=== PATIENT | male | born 1985 | race Caucasian/White ===

== ENCOUNTER 2019-07-31 20:48 | Emergency (ER) | payer SELFPAY ==
[~2019-07-31] VITALS: Ht 180.3 cm; Wt 102.1 kg
[~2019-07-31 20:48] MED LIST: ALPR1 PO; METPHE5 PO
[2019-07-31 21:03] LABS: BASOPHILS ABSOLUTE AUTO 0.06 K/mm3 (0.00-0.23); BASOPHILS PERCENT AUTO 0 % (0-2); EOSINOPHILS ABSOLUTE AUTO 1.25 K/mm3 (0.00-0.68); EOSINOPHILS PERCENT AUTO 8 % (0-6); Hematocrit 52.7 % (37.0-53.0); Hemoglobin 17.3 g/dL (13.5-17.5); IMMATURE GRAN ABSOLUTE AUTO 0.04 K/mm3 (0.00-0.10); IMMATURE GRAN PERCENT AUTO 0 % (0-1); LYMPHOCYTES ABSOLUTE AUTO 4.42 K/mm3 (0.84-5.20); LYMPHOCYTES PERCENT AUTO 29 % (21-46); MONOCYTES ABSOLUTE AUTO 1.02 K/mm3 (0.16-1.47); MONOCYTES PERCENT AUTO 7 % (4-13); Mean Corpuscular HGB 29.3 pg (26.0-34.0); Mean Corpuscular HGB Conc 32.8 g/dL (31.5-36.5); Mean Corpuscular Volume 89 fL (80-100); Mean Platelet Volume 10.3 fL (9.1-12.4); NEUTROPHILS ABSOLUTE AUTO 8.54 K/mm3 (1.96-9.15); NEUTROPHILS PERCENT AUTO 56 % (41-73); Platelet Count 270 K/mm3 (150-400); RDW Coefficient Variation 12.3 % (11.7-14.2); RDW Standard Deviation 40.9 fL (35.1-46.3); White Blood Cell Count 15.33 K/mm3 (4.00-11.30)
[2019-07-31 21:31] LABS: Alanine Aminotransfer (ALT/SGP 34 U/L (12-78); Albumin, Blood 4.5 g/dL (3.4-5.0); Albumin/Globulin Ratio 0.9 (0.8-1.8); Alk Phos 142 U/L (50-136); Anion Gap 6 mmol/L (6-16); Aspartate Aminotrans (AST/SGOT 21 U/L (12-37); Bilirubin, Total 0.9 mg/dL (0.1-1.0); Blood Urea Nitrogen 10 mg/dL (8-24); Bun/Creatinine Ratio 10.5 (12.0-20.0); CO2, Blood 29 mmol/L (21-32); Calcium, Blood 9.6 mg/dL (8.5-10.1); Chloride, Blood 104 mmol/L (98-108); Creatinine, Blood 0.95 mg/dL (0.60-1.20); Glomerular Filtration Rate >60 (60-); Glucose, Blood 195 mg/dL (70-99); Potassium, Blood 3.8 mmol/L (3.5-5.5); Sodium, Blood 139 mmol/L (136-145); Total Protein, Blood 9.5 g/dL (6.4-8.2)
[2019-07-31] MEDS ORDERED: Prednisone20 MG PO (22:04)
[2019-07-31] MEDS ORDERED: IPRAT-ALBUT 0.5-3 ML INH (22:04)
[2019-07-31] MEDS ORDERED: ALBU90OI INH (22:04)
[2019-07-31] MEDS ORDERED: ALBU2.5V5 NEB (22:04)
== END 2019-07-31 22:12 | disposition home or self-care (01) ==
LOC: ER 20:48
PROVIDERS: Physician Assistant
DX: J45.901 Unspecified asthma with (acute) exacerbation (principal); Z79.899 Other long term (current) drug therapy; F17.210 Nicotine dependence, cigarettes, uncomplicated
CPT/HCPCS: 36415; 71045; 80053; 85025; 94644; 96365; 96375; 99285-25; J2930; J3475

== ENCOUNTER 2019-12-23 15:55 | Observation (INO) | payer OTHER ==
[~2019-12-23] VITALS: Ht 177.8 cm; Wt 92.8 kg
[~2019-12-23 15:55] MED LIST changes: +ALBU2.5V5 NEB; +ALBU90OI INH; +IPRAT-ALBUT 0.5-3 ML INH; +Prednisone20 MG PO
[2019-12-23 18:36] LABS: PCO2 Arterial 49.2 mmHg (35-45); PO2 Arterial 62.6 mmHg (80-100); pH Blood Arterial 7.37 (7.35-7.45)
[2019-12-23 18:37] LABS: BASOPHILS ABSOLUTE AUTO 0.04 K/mm3 (0.00-0.23); BASOPHILS PERCENT AUTO 0 % (0-2); EOSINOPHILS ABSOLUTE AUTO 0.42 K/mm3 (0.00-0.68); EOSINOPHILS PERCENT AUTO 3 % (0-6); Hematocrit 48.1 % (37.0-53.0); Hemoglobin 15.7 g/dL (13.5-17.5); IMMATURE GRAN ABSOLUTE AUTO 0.04 K/mm3 (0.00-0.10); IMMATURE GRAN PERCENT AUTO 0 % (0-1); LYMPHOCYTES PERCENT AUTO 9 % (21-46); MONOCYTES ABSOLUTE AUTO 0.26 K/mm3 (0.16-1.47); MONOCYTES PERCENT AUTO 2 % (4-13); Mean Corpuscular HGB 29.4 pg (26.0-34.0); Mean Corpuscular HGB Conc 32.6 g/dL (31.5-36.5); Mean Corpuscular Volume 90 fL (80-100); Mean Platelet Volume 10.5 fL (9.1-12.4); NEUTROPHILS ABSOLUTE AUTO 11.07 K/mm3 (1.96-9.15); NEUTROPHILS PERCENT AUTO 85 % (41-73); Platelet Count 244 K/mm3 (150-400); RDW Coefficient Variation 12.5 % (11.7-14.2); RDW Standard Deviation 41.5 fL (35.1-46.3); Red Blood Cell Count 5.34 M/mm3 (4.30-5.90); White Blood Cell Count 13.03 K/mm3 (4.00-11.30)
[2019-12-23 19:00] LABS: Alanine Aminotransfer (ALT/SGP 52 U/L (12-78); Albumin, Blood 4.1 g/dL (3.4-5.0); Albumin/Globulin Ratio 0.9 (0.8-1.8); Alk Phos 129 U/L (50-136); Anion Gap 5 mmol/L (6-16); Aspartate Aminotrans (AST/SGOT 40 U/L (12-37); Bilirubin, Total 1.1 mg/dL (0.1-1.0); Blood Urea Nitrogen 11 mg/dL (8-24); Bun/Creatinine Ratio 15.8 (12.0-20.0); CO2, Blood 31 mmol/L (21-32); Calcium, Blood 9.5 mg/dL (8.5-10.1); Chloride, Blood 103 mmol/L (98-108); Globulin, Blood 4.6 g/dL (2.2-4.0); Glomerular Filtration Rate >60 (60-); Glucose, Blood 205 mg/dL (70-99); Potassium, Blood 4.2 mmol/L (3.5-5.5); Sodium, Blood 139 mmol/L (136-145); Total Protein, Blood 8.7 g/dL (6.4-8.2)
--- NOTE | 2019-12-24 08:09 | NUR ---
SHIFT SUMMARY PT ARRIVED TO THE UNIT AROUND 2100 IN STABLE CONDTION WITH NO COMPLAINTS OF SOB OR COUGH. PT STATED MILD DISCOMFORT IN CHEST WITH DEEP BREATHS. PT DID HAVE OCCASIONAL COUGH THAT WAS UNPRODUCTIVE. PT STATED USING ALBUTEROL INHALER AN EXCESSIVE AMOUNT PER DAY, MORE THAN 10 TIME/DAY. PB WAS HYPERTENSIVE UPON ADMISSION WITH SYSTOLIC AROUND 170 FALLING TO 155 BY MORNING. HR IN THE 60-70'S. PT STATED USING O2 AT HOME BUT IT WAS VERY UNCLEAR WHAT TYPE AND WHEN HE USED IT, HE STATED HE WAS ON 3LPM. PT HAD VERY UNEVENTFUL EVENING. PT AWAKE AND TALKING ON PHONE, WILL CONTINUE TO MONITOR UNTIL SHIFT CHANGE.
[2019-12-24] MEDS ORDERED: FLUTICASONE-SA1 EAC1 INH (14:11)
[2019-12-24] MEDS ORDERED: PRED20 PO (14:12)
--- NOTE | 2019-12-24 14:33 | NUR ---
SHIFT SUMMARY PT A&Ox4; ANXIOUS BUT COOPERATIVE WITH CARE. SOB WITH ACTIVITY OR WITH COUGH, SPO2 >90% ON RA AT REST. DIPS TO 895 AT TIMES WITH AMBULATION. HOME O2 EVAL COMPLETED. PT DENIES PAIN, NAUSEA AND DIZIZINESS. PT RECEIIVNG IV STEROIDS. VSS. NO OTHER ACUTE CHANGES NOTED DURING SHIFT. PT INSISTANT ON LEAVING HOME TODAY; NOTIIFED DR CROWLEY; NEW DISCHARGE ORDERS FOR DISCHARGE. MEDS CALLED INTO [facility], EDUCATED ON [employer] PT DOES NOT HAVE INSURANCE. EDUCATED ON DISCAHRGE INSTRUCTIONS, SETTING UP PCP AND FOLLOW UP AND MEDICATIONS. PT LEFT ROOM ON FOOT AT 1425.
== END 2019-12-24 14:25 | disposition home or self-care (01) ==
LOC: ER 15:55 → PCU 15:58
PROVIDERS: Emergency Medicine; Physician Assistant; ADMIT Internal Medicine
DX: J96.02 Acute respiratory failure with hypercapnia (principal); J96.01 Acute respiratory failure with hypoxia; I10 Essential (primary) hypertension; D72.829 Elevated white blood cell count, unspecified; J45.41 Moderate persistent asthma with (acute) exacerbation; Z20.828 Contact with and (suspected) exposure to other viral communicable diseases; Z79.899 Other long term (current) drug therapy; F17.210 Nicotine dependence, cigarettes, uncomplicated; J44.9 Chronic obstructive pulmonary disease, unspecified
CPT/HCPCS: 36415; 36600; 71045; 80053; 82803; 85025; 94640; 94760; 96365; 96375; 96376; 99285-25; G0008; G0378; J0456; J2405; J2930; J7050; Q2038; U0004

== ENCOUNTER 2020-01-28 16:26 | Emergency (ER) | payer OTHER ==
[~2020-01-28] VITALS: Ht 177.8 cm; Wt 86.2 kg
[~2020-01-28 16:26] MED LIST changes: +FLUTICASONE-SA1 EAC1 INH; +PRED20 PO
[2020-01-28] MEDS ORDERED: ALBU90OI INH (17:17)
[2020-01-28] MEDS ORDERED: FLUT1DIS5 INH (17:17)
[2020-01-28] MEDS ORDERED: HYDRA25 PO (17:17)
[2020-01-28] MEDS ORDERED: AZIT250 PO (17:17)
== END 2020-01-28 17:53 | disposition home or self-care (01) ==
LOC: ER 16:26
DX: J45.901 Unspecified asthma with (acute) exacerbation (principal); I10 Essential (primary) hypertension; F17.210 Nicotine dependence, cigarettes, uncomplicated; Z79.899 Other long term (current) drug therapy
CPT/HCPCS: 71045; 94640; 96372; 99283-25; J2930

== ENCOUNTER 2020-03-22 13:39 | Emergency (ER) | payer OTHER ==
[~2020-03-22] VITALS: Ht 177.8 cm; Wt 90.7 kg
[~2020-03-22 13:39] MED LIST changes: +AZIT250 PO; +FLUT1DIS5 INH; +HYDRA25 PO
[2020-03-22] MEDS ORDERED: ALBU90OI INH (14:24)
[2020-03-22] MEDS ORDERED: Ventolin Sy2 MG/5 ML PO (14:24)
[2020-03-22] MEDS ORDERED: Prednisone20 MG PO (14:24)
== END 2020-03-22 15:04 | disposition home or self-care (01) ==
LOC: ER 13:39
DX: J45.901 Unspecified asthma with (acute) exacerbation (principal); I10 Essential (primary) hypertension; Z79.52 Long term (current) use of systemic steroids; Z79.899 Other long term (current) drug therapy
CPT/HCPCS: 94640; 99284-25; J7512

== ENCOUNTER 2020-06-01 11:03 | Emergency (ER) | payer OTHER ==
[~2020-06-01] VITALS: Ht 172.7 cm; Wt 77.1 kg
[~2020-06-01 11:03] MED LIST changes: +Ventolin Sy2 MG/5 ML PO
[2020-06-01] MEDS ORDERED: ALBU2.5V5 NEB (12:17)
[2020-06-01] MEDS ORDERED: ALBU90OI INH (12:17)
[2020-06-01] MEDS ORDERED: METPRE4DP PO (12:17)
== END 2020-06-01 12:20 | disposition home or self-care (01) ==
LOC: ER 11:03
DX: J45.901 Unspecified asthma with (acute) exacerbation (principal); I10 Essential (primary) hypertension; F17.210 Nicotine dependence, cigarettes, uncomplicated
CPT/HCPCS: 36415; 94640; 94644; 96374; 99284-25; J2930